=== PATIENT | male | born 1995 | race Caucasian/White ===

== ENCOUNTER 2017-07-19 07:59 | Day surgery (SDC) | payer BC ==
[2017-07-19] VITALS (8 sets, daily range): BP systolic 106–150; BP diastolic 54–85; PULSE 58–96; RESP 16–20; TEMP 97.8–98; O2SAT 95–98
[2017-07-19] MEDS ORDERED: CLIN300C5 PO (08:27)
[2017-07-19] MEDS ORDERED: SODIUM CHLOR 0.9% 1000 ML INJ 1,000 ML IV SCH (09:00)
[2017-07-19 09:56] LABS: AUTOMATED NEUTROPHIL # 3.4 TH/MM3 (1.8-7.7); BASOPHIL % 0.4 % (0.0-2.0); EOSINOPHIL # 0.1 TH/MM3 (0-0.4); EOSINOPHIL % 1.1 % (0.0-4.0); HEMATOCRIT 40.9 % (39.0-51.0); HEMOGLOBIN 14.3 GM/DL (13.0-17.0); LYMPH % 33.6 % (9.0-44.0); LYMPHOCYTE # 1.9 TH/MM3 (1.0-4.8); MEAN CORPUSCULAR HEMOGLOBIN 30.1 PG (27.0-34.0); MEAN PLATELET VOLUME 7.6 FL (7.0-11.0); MONO % 5.7 % (0.0-8.0); MONOCYTE # 0.3 TH/MM3 (0-0.9); NEUT % 59.2 % (16.0-70.0); PLATELET COUNT 203 TH/MM3 (150-450); RED BLOOD COUNT 4.75 MIL/MM3 (4.50-5.90); RED CELL DISTRIBUTION WIDTH 12.7 % (11.6-17.2); WHITE BLOOD COUNT 5.7 TH/MM3 (4.0-11.0)
--- NOTE | 2017-07-19 09:58 | RADRPT ---
EXAM DATE/TIME: 07/19/2017 09:32 [facility] COMPARISON: No previous studies available for comparison. INDICATIONS : Patient in need of peripheral intravenous access. MEDICAL HISTORY : Burkitt lymphoma SURGICAL HISTORY : N/A ENCOUNTER: Initial ACUITY: 1 week PAIN SCORE: 0/10 LOCATION: N/A IMAGE SERIES: 1 ACCESS: Right basilic vein DEVICE(S): 1.) 3/4 [place] Dilator PROCEDURE : 1. Ultrasound guided venous access. The risks, benefits and alternatives to the procedure were explained and verbal and written consent w as obtained. The site was prepped in sterile fashion. Full sterile technique was used, including ca p, mask, sterile gloves and gown and a large sterile sheet. Hand hygiene and 2% chlorhexidine and/or betadine/alcohol prep was utilized per protocol for cutaneous antisepsis. Sterile gel and sterile p robe cover were utilized for ultrasound guidance. The skin and subcutaneous tissues were infiltrate d with local anesthetic solution. With ultrasound guidance the prescribed vein was punctured for venous access. A 4 [place] dilator was placed and was flushed and locked with heparin. The patient tolerated procedure well and there were n o complications. CONCLUSION: Uncomplicated ultrasound guided venous access. Nam Albarado MD on July 19, 2017 at 9:55 Board Certified Radiologist. This report was verified electronically.
[2017-07-19 10:08] LABS: PROTHROMBIN TIME - PATIENT 10.2 SEC (9.8-11.6)
[2017-07-19] MEDS ORDERED: MIDAZOLAM HCL 5 MG/5 ML VIAL ONE (11:26)
[2017-07-19] MEDS ORDERED: fentaNYL CITRATE 250 MCG/5 ML AMP ONE (11:26)
--- NOTE | 2017-07-19 12:05 | PD.RAD ---
Post Procedure Progress Note Pre Procedure Diagnosis: (1) Burkitt lymphoma Post Procedure Diagnosis: (1) Burkitt lymphoma Procedure Date: July 19, 2017 Supervising Radiologist: Conor Aernas Estimated blood loss: 4cc Anesthesia: Local, Conscious Sedation Plan of Activity Patient to Unit: [facility] Patient Condition: Good Additional Comments: Bone marrow biopsy completed withoput difficulty. Core sample, slides and aspirates sent to pathology Full dictated report to follow See PACS Report for procedural detail/treatment Conor Arenas MD July 19, 2017 12:05
--- NOTE | 2017-07-19 13:59 | RADRPT ---
EXAM DATE/TIME: 07/19/2017 13:32 [facility] COMPARISON: CT NEEDLE BIOPSY BONE MARROW, July 19, 2017, 11:37. INDICATIONS : Patient presents with Burkitt's lymphoma in need of lumbar puncture MEDICAL HISTORY : Burkitt's lymphoma SURGICAL HISTORY : [place] teeth Toe nail sx ENCOUNTER: Initial ACUITY: 1 week PAIN SCORE: 0/10 LOCATION: N/A LUMBAR PUNCTURE TIME: 13:29 hours FLUORO TIME: 0.20 minutes IMAGE SERIES: 1 ACCESS LEVEL: L3-4 FLUID: 12 cc of clear CSF was collected and sent to the laboratory for analysis. PROCEDURE : 1. Fluoroscopic guided lumbar puncture. The risks, benefits and alternatives to the procedure were explained and verbal and written consent w as obtained. The site was prepped in sterile fashion. Full sterile technique was used, including ca p, mask, sterile gloves and gown and a large sterile sheet. Hand hygiene and 2% chlorhexidine and/or betadine/alcohol prep was utilized per protocol for cutaneous antisepsis. The skin and subcutaneous tissues were infiltrated with local anesthetic solution. With fluoroscopic guidance the lumbar thecal sac was punctured at the level above. The fluid describ ed above was removed without difficulty. The patient tolerated the procedure well and there were no complications. CONCLUSION: Uncomplicated fluoroscopically guided lumbar puncture. Nam Albarado MD on July 19, 2017 at 13:56 Board Certified Radiologist. This report was verified electronically.
[2017-07-19 14:35] LABS: TOTAL PROTEIN,CSF 56.1 MG/DL (15.0-45.0)
[2017-07-19 14:57] LABS: RBC TUBE #4 60 /MM3; SUPERNATE COLOR TUBE #1 CLEAR (CLEAR); VOLUME TUBE # 1 2.1 ML; WBC TUBE #4 0 /MM3 (0-10)
[2017-07-19 14:58] LABS: CSF NEUTROPHILS 0 %
--- NOTE | 2017-07-19 16:31 | RADRPT ---
EXAM DATE/TIME: 07/19/2017 11:37 [facility] COMPARISON: No previous studies available for comparison. INDICATIONS : Bone marrow biopsy, Burkitts lymphoma. SEDATION TIME: 30 minutes BIOPSY SITE: bone marrow MEDICATION(S): 1.) 3.5 mg midazolam (Versed) IV 2.) 125 mcg fentanyl (Sublimaze) IV DEVICE(S): 1.) 11 gauge Bone marrow biopsy needle MEDICAL HISTORY : Burkitts lymphoma SURGICAL HISTORY : None. ENCOUNTER: Initial ACUITY: 1 day PAIN SCORE: 0/10 LOCATION: Left iliac A total of one core specimen(s) were obtained and sent to the laboratory for pathologic evaluation. PROCEDURE: 1. CT guided bone marrow biopsy. 2. Conscious sedation with continuous EKG and oximetry monitoring. 3. EKG and oximetry remained stable throughout the procedure. Prior to the procedure informed consent was obtained. Any appropriate prior imaging studies were rev iewed. Using automated exposure control and adjustment of the mA and/or kV according to patient size , radiation dose was kept as low as reasonably achievable to obtain optimal diagnostic quality images . DICOM format image data is available electronically for review and comparison. The site was prepped in a sterile fashion. Full sterile technique was used, including cap, mask, zohaib rile gloves and gown and a large sterile sheet. Hand hygiene and 2% chlorhexidine and/or betadine/al cohol prep was utilized per protocol for cutaneous antisepsis. The skin and subcutaneous tissues wer e infiltrated with local anesthetic solution. With CT guidance the previously identified target was localized. Biopsy was performed using the presc ribed needle as above. Following biopsy marrow aspiration was performed with repeat puncture. [place] te hemostasis was obtained with compression at the puncture site. Follow-up CT scan reveals no hemorrhage. Conscious sedation was performed with the prescribed dosages and duration as above in the presence of an independent trained radiology nurse to assist in the monitoring of the patient. EKG and oximetry remained stable throughout the procedure. The patient tolerated the procedure well and there were no complications. The patient was sent to Radiology Outpatient Unit in stable condition. CONCLUSION: 1. Uncomplicated CT guided bone marrow aspirate. 2. Uncomplicated CT guided bone marrow biopsy. Conor Arenas MD on July 19, 2017 at 16:27 Board Certified Radiologist. This report was verified electronically.
[2017-07-19 17:39] LABS: CSF LYMPHOCYTES 100 %
== END 2017-07-19 16:30 | disposition home or self-care (01) ==
LOC: HRAD 07:59 → HRIP 08:02 → HRAD 16:30
PROVIDERS: ATTEND Internal Medicine Hematology
DX: C83.70 Burkitt lymphoma, unspecified site (principal)
CPT/HCPCS: 36410; 38222; 62270; 76937; 77003; 77012; 82945; 84157; 85025; 85097; 85610; 85730; 88108; 88237; 88264; 88280; 88305; 88311; 88313; 89051; 99152; 99153; C1830; J2250; J3010; 88341